=== PATIENT | female | born 2000 | race African-American/Black ===

== ENCOUNTER 2024-05-23 16:04 | Emergency (ER) | payer OTHER, SELFPAY ==
[2024-05-23 16:18] VITALS: BP 109/70; PULSE 100; RESP 18; TEMP 36.4; O2SAT 100
--- NOTE | 2024-05-23 16:24 | ED.URI ---
HPI - URI/Sore Throat General Chief Complaint: Upper Respiratory Infection Stated Complaint: Cough Time Seen by Provider: 05/23/24 16:24 Source: patient, RN notes reviewed and old records reviewed Mode of arrival: ambulatory Limitations: no limitations History of Present Illness HPI Narrative: Patient presents with request for return to work note. She reports that last week she had symptoms of runny nose, sore throat, ear pain, cough. She denies any fever, chills, sweats. She reports that all symptoms are gone with the exception of mild cough. She is also requesting some cough medication. She is not in any distress. Denies injury or trauma. No other concerns or complaints at this time Related Data Home Medications Medication Instructions Recorded Confirmed aripiprazole 10 mg tablet 10 mg PO DAILY 05/23/24 05/23/24 fluoxetine 20 mg capsule 20 mg PO DAILY 05/23/24 05/23/24 fluoxetine 40 mg capsule 40 mg PO DAILY 05/23/24 05/23/24 Review of Systems Review of Systems: All systems reviewed & are unremarkable except as noted in HPI and below Constitutional: Constitutional: Reports no additional constitutional complaints ENT: Reports system reviewed and no additional complaints, except as documented and Reports as per HPI Cardiovascular: Cardiovascular: Reports no additional cardiovascular complaints Respiratory: Respiratory: Reports as per HPI and Reports no additional respiratory complaints Gastrointestinal: Gastrointestinal: Reports no additional gastrointestinal complaints PMFSH Comments At the time of my signature, I reviewed and agree with the nursing past medical, surgical, social, and family history. There is no relevant family history pertinent to the patient complaint. Exam Const: General: cooperative, no acute distress, alert and awake Orientation/consciousness: oriented to person, oriented to place and oriented to time HENMT: Head: normal to inspection Ears: TM's normal bilaterally Mouth: Yes moist mucous membranes Throat: posterior oropharynx normal Resp: Effort & Inspection: normal respiratory effort and able to speak in complete sentences Auscultation: clear to auscultation bilaterally, no crackles, no rales, no rhonchi and no wheezes Cardio: Palpation: normal PMI Rate: regular rate Rhythm: regular rhythm Heart sounds: S1 normal heart sound present and S2 normal heart sound present Neuro: General: oriented to person, oriented to place and oriented to time Cranial nerves: Yes CN's II-XII intact bilaterally Psych: Appearance: grossly normal Thought process: Normal thought process present Insight: Good insight present (Psych) Judgement: Good judgement present (Psych) Course Course Level of Care: Express Care Visit Vital Signs Vital signs: Vital Signs Temperature 97.5 F L 05/23/24 16:18 Pulse Rate 100 05/23/24 16:18 Respiratory Rate 18 05/23/24 16:18 Blood Pressure 109/70 05/23/24 16:18 Pulse Oximetry 100 05/23/24 16:18 Oxygen Delivery Room Air 05/23/24 16:18 Temperature 97.5 F L 05/23/24 16:18 Pulse Rate 100 05/23/24 16:18 Respiratory Rate 18 05/23/24 16:18 Blood Pressure 109/70 05/23/24 16:18 Pulse Oximetry 100 05/23/24 16:18 Oxygen Delivery Room Air 05/23/24 16:18 Reviewed MDM - URI/Sore Throat MDM Narrative Medical decision making narrative: Patient with URI symptoms that are resolving with the exception of cough. She is requesting cough medication and work note. [employer] prescribed. Work note provided. Follow with primary care provider. Emergency department for new or worse symptoms. Patient nontoxic appearing, stable for discharge home. Discharge instructions reviewed with patient, as well as provided in writing per nursing staff. The instructions also include specific and strict return/GO TO THE ER as well as f/u information. All questions have been answered, and the patient deny any further questions with discharge and discharge plan. Some parts of this dictation were generated by voice recognition software and may contain typographical and/or grammatical inaccuracies. Differential Diagnosis Differential diagnosis: Likely upper respiratory infection, otitis media, sinusitis, viral infection and bronchitis Medical Records Attestation: I reviewed the patient's medical records. Discharge Plan Discharge Clinical Impression: Upper respiratory infection Qualifiers: URI type: unspecified URI Qualified Code(s): J06.9 - Acute upper respiratory infection, unspecified Patient Disposition: Home, Self-Care Condition: Stable Instructions: Antibiotic Form, Viral Syndrome (ED) Additional Instructions: Take medication as prescribed, follow with primary care provider. Emergency department for new or worse symptoms Patient Language: [place] Prescriptions: New benzonatate 200 mg capsule 200 mg PO TID PRN (Reason: cough) Qty: 30 0RF No Action fluoxetine 40 mg capsule 40 mg PO DAILY fluoxetine 20 mg capsule 20 mg PO DAILY aripiprazole 10 mg tablet 10 mg PO DAILY Follow-up/Referrals: PHYSICIAN,HUM[facility] [employer]CT[employer] ADVISOR LEAD [Primary Care Provider] - Stand Alone Forms: Work/School Release IP Time of Disposition: 16:42
== END 2024-05-23 16:55 | disposition home or self-care (01) ==
PROVIDERS: Emergency Provider Nurse Practitioner Family
DX: J06.9 Acute upper respiratory infection, unspecified (principal)
CPT/HCPCS: 99203; G0463

== ENCOUNTER 2024-06-13 09:25 | Emergency (ER) | payer OTHER, SELFPAY ==
[2024-06-13 09:38] VITALS: BP 114/95; PULSE 89; RESP 16; TEMP 37.2; O2SAT 98
--- NOTE | 2024-06-13 10:09 | ED_ITS ---
HPI - General Adult General Chief complaint: Unspecified Stated complaint: work note, bad cold Time Seen by Provider: 06/13/24 10:26 Source: patient, RN notes reviewed and old records reviewed Mode of arrival: ambulatory Limitations: no limitations History of Present Illness HPI narrative: Patient presents requesting return to work note for tomorrow. She reports that she vomits while she is work, she is unsure why. Says that she has not vomited since Friday. She denies any nausea, vomiting, abdominal pain. Reports that she has no symptoms today, is only here for a work note Related Data Home Medications Medication Instructions Recorded Confirmed aripiprazole 10 mg tablet 10 mg PO DAILY 05/23/24 06/13/24 fluoxetine 20 mg capsule 20 mg PO DAILY 05/23/24 06/13/24 fluoxetine 40 mg capsule 40 mg PO DAILY 05/23/24 06/13/24 Allergies Allergy/AdvReac Type Severity Reaction Status Date / Time No Known Allergies Allergy Verified 06/13/24 09:52 Review of Systems Review of Systems: All systems reviewed & are unremarkable except as noted in HPI and below Constitutional: Constitutional: Reports no additional constitutional complaints ENT: Reports system reviewed and no additional complaints, except as documented Cardiovascular: Cardiovascular: Reports no additional cardiovascular com plaints Respiratory: Respiratory: Reports no additional respiratory complaints Gastrointestinal: Gastrointestinal: Reports as per HPI and Reports no additional gastrointestinal complaints PMFSH Comments At the time of my signature, I reviewed and agree with the nursing past medical, surgical, social, and family history. There is no relevant family history pertinent to the patient complaint. Exam Const: General: cooperative, no acute distress, alert and awake Orientation/consciousness: oriented to person, oriented to place and oriented to time HENMT: Head: normal to inspection Resp: Effort & Inspection: normal respiratory effort and able to speak in complete sentences Auscultation: clear to auscultation bilaterally, no crackles, no rales, no rhonchi and no wheezes Cardio: Palpation: normal PMI Rate: regular rate Rhythm: regular rhythm Heart sounds: S1 normal heart sound present and S2 normal heart sound present Neuro: General: oriented to person, oriented to place and oriented to time Cranial nerves: Yes CN's II-XII intact bilaterally Psych: Appearance: grossly normal Thought process: Normal thought process present Insight: Good insight present (Psych) Judgement: Good judgement present (Psych) Course Course Level of Care: Express Care Visit Vital Signs Vital signs: Vital Signs Temperature 98.9 F 06/13/24 09:38 Pulse Rate 89 06/13/24 09:38 Respiratory Rate 16 06/13/24 09:38 Blood Pressure 114/95 H 06/13/24 09:38 Pulse Oximetry 98 06/13/24 09:38 Oxygen Delivery Room Air 06/13/24 09:38 Temperature 98.9 F 06/13/24 09:38 Pulse Rate 89 06/13/24 09:38 Respiratory Rate 16 06/13/24 09:38 Blood Pressure 114/95 H 06/13/24 09:38 Pulse Oximetry 98 06/13/24 09:38 Oxygen Delivery Room Air 06/13/24 09:38 Reviewed Medical Decision Making MDM Narrative Medical decision making narrative: Patient with no complaints and normal physical exam. Requests work note Discharge instructions reviewed with patient, as well as provided in writing per nursing staff. The instructions also include specific and strict return/GO TO THE ER as well as f/u information. All questions have been answered, and the patient deny any further questions with discharge and discharge plan. Some parts of this dictation were generated by voice recognition software and may contain typographical and/or grammatical inaccuracies. Differential Diagnosis Differential Diagnosis: Malingering, nausea, vomiting, anxiety Medical Records Medical records reviewed: Yes I reviewed the external patient's medical records. Vital Signs Vital Signs: Vital Signs Temperature 98.9 F 06/13/24 09:38 Pulse Rate 89 06/13/24 09:38 Respiratory Rate 16 06/13/24 09:38 Blood Pressure 114/95 H 06/13/24 09:38 Pulse Oximetry 98 06/13/24 09:38 Oxygen Delivery Room Air 06/13/24 09:38 Temperature 98.9 F 06/13/24 09:38 Pulse Rate 89 06/13/24 09:38 Respiratory Rate 16 06/13/24 09:38 Blood Pressure 114/95 H 06/13/24 09:38 Pulse Oximetry 98 06/13/24 09:38 Oxygen Delivery Room Air 06/13/24 09:38 reviewed Lab Data Lab results reviewed: Yes I reviewed the patient's lab results. Lab results narrative: reviewed Discharge Plan Discharge Clinical Impression: Nausea Patient Disposition: Home, Self-Care Condition: Stable Instructions: Antibiotic Form, Anxiety (ED) Additional Instructions: Follow-up with primary care provider. Emergency department for new or worse symptoms Patient Language: [place] Prescriptions: No Action fluoxetine 40 mg capsule 40 mg PO DAILY fluoxetine 20 mg capsule 20 mg PO DAILY aripiprazole 10 mg tablet 10 mg PO DAILY Follow-up/Referrals: [facility] [Primary Care Provider] - Stand Alone Forms: Work/School Release IP Time of Disposition: 10:32
== END 2024-06-13 10:40 | disposition home or self-care (01) ==
PROVIDERS: Emergency Provider Nurse Practitioner Family
DX: R11.0 Nausea (principal); F41.9 Anxiety disorder, unspecified; F32.A Depression, unspecified
CPT/HCPCS: 99211; G0463